=== PATIENT | male | born 1970 | race Caucasian/White ===

== ENCOUNTER 2017-04-15 02:34 | Inpatient (IN) ==
[2017-04-15] MEDS ORDERED: *HR* HYDROmorphone (PF) 1 MG/ML SYRINGE IVP ONE (05:24)
[2017-04-15] MEDS ORDERED: *HR* Labetalol 20 MG/4 ML SYRINGE IVP ONE (05:24)
--- NOTE | 2017-04-15 05:24 | Internal Med History&Physical ---
Date of Encounter: 04/15/17 Time of Encounter: 05:24 Assessment and Plan (1) Acute pancreatitis Current visit: Yes Status: Acute denies alcohol use. Patient is status post cholecystectomy. No change in his medications recently. At this time the cause is unknown. Treat him with the intravenous fluids and pain relief. GI consultation for further advice. Qualifiers: Pancreatitis type: unspecified pancreatitis type Acute pancreatitis complication: no infection or necrosis Qualified Code(s): K85.90 - Acute pancreatitis without necrosis or infection, unspecified (2) Accelerated hypertension Current visit: Yes Status: Acute Pt reports missing home meds last night. Labetolol PRN;; resume home meds (3) UTI (urinary tract infection) Current visit: Yes Status: Acute UA was noted to be abnormal in [facility]. Urine cultures were sent at [facility]. Empirically started ceftriaxone - titrate antibiotics based on culture results . Qualifiers: Urinary tract infection type: site unspecified Hematuria presence: without hematuria Qualified Code(s): N39.0 - Urinary tract infection, site not specified (4) Acute kidney injury Current visit: Yes Status: Acute Creatinine is 2.53. His baseline was about 1.5. Treat with IV fluids.Monitor renal function (5) Hyperkalemia Current visit: Yes Status: Acute Due to SIDNEY. Monitor (6) Nicotine dependence Current visit: Yes Status: Chronic Nicotine patch Qualifiers: Nicotine product type: cigarettes Substance use status: unspecified nicotine-induced disorder Qualified Code(s): F17.219 - Nicotine dependence, cigarettes, with unspecified nicotine-induced disorders (7) Morbid obesity with BMI of 40.0-44.9, adult Current visit: Yes Status: Chronic supportive care (8) Diabetes mellitus, type II Current visit: Yes Status: Chronic Start sliding scale insulin Qualifiers: Diabetes mellitus complication status: with neurologic complications Diabetes mellitus complication detail: with other neurological complication Qualified Code(s): E11.49 - Type 2 diabetes mellitus with other diabetic neurological complication; Z79.4 - shelter (current) use of insulin (9) DVT prophylaxis Current visit: Yes Status: Acute Heparin Internal Medicine - H&P: HPI Chief complaint: Abdominal pain Admitted From: Emergency Dept Plans for Post Hospital Care: Home History of present illness: Mr. Elizabeth is a 46 year old male With h/o diabetes mellitus, GERD, hypertension, s /p left BKA, s/p cholecystectomy - present to the emergency department at [facility], 9-day history of epigastric abdominal pain. He describes the pain as burning, severe 10/05, constant, radiating to the back, with no exacerbating factors. He denies significant nausea, vomiting, change in bowel habits, dysuria, hematuria, hematemesis, melena, hematochezia, fever, chills, chest pain, shortness of breath, cough or expectoration. He was evaluated in the ER at [facility] and was noted to have acute pancreatitis with the lipoprotein lipase of more than 2250. CT scan of the abdomen and pelvis apparently reported to stranding around the head of pancreas suggesting pancreatitis. He was hyperkalemic with potassium of 5.4 and was treated at [facility] ER. He is transferred to the hospitalist service attending [facility], as no inpatient beds available at [facility]. Summary of labs from [facility]: Urinalysis positive for leukocyte esterase, leukocytes and bacteria. Urine culture was sent. CBC shows a WBC of 11.9, hemoglobin 13.3, hematocrit 40.6, the test 363, serum sodium 139, potassium 4.4 , bicarbonate 25, BNP 27, glucose 208, creatinine 2.53, lactate 0.6, lipoprotein lipase more than 2250, bilirubin 0.2, creatinine 2.1, AST 22, ALT 16 , ALP: 271 Past Med Surg Social Fam HX - Past Medical History Medical history: arthritis, diabetes, GERD, hepatitis, hyperlipidemia, hypertension, venous stasis, other Psychiatric history: anxiety, depression - Past Surgical History Surgical History: cholecystectomy, other - Social History Smoking Status: Current every day smoker Smokeless Tobacco Status: No Alcohol use: none Drug use: none - Family History Mother Adopted: No Living Status: Still Living Hx Family Cardiac Disorders: Yes Hx Family Respiratory Disorders: Yes Hx Family Endocrine Disorder: Yes Father Adopted: No Family Member Ethnicity: Unknown Living Status: Internal Medicine - H&P: Meds Furosemide [Lasix] 20 mg PO DAILY 08/17/15 [History] Insulin ASPART [NovoLOG] 35 units SQ DAILY 08/17/15 [History] Insulin DETEMIR [Levemir] 30 unit SQ BID 08/17/15 [History] Metoprolol [Lopressor] 25 mg PO BID 08/17/15 [History] Omeprazole [PriLOSEC] 20 mg PO DAILY 08/17/15 [History] Potassium Chloride 20 meq PO BID 08/17/15 [History] Pregabalin [Lyrica] 200 mg PO TID 08/17/15 [History] hydrALAZINE [HydrALAZINE] 25 mg PO BID 08/17/15 [History] HYDROcodone/Acet 5/325 mg [[place] 5-325 mg] 1 tab PO Q8H PRN 02/06/16 [History] Allergies gabapentin [From Neurontin] Allergy (Verified 08/17/15 11:04) Rash All Systems PM: A 10-system review of systems was performed and is negative for pertinent findings except as documented above in the HPI. - Constitutional Vitals: Temp Pulse Resp BP Pulse Ox 97.8 F 86 19 211/104 98 04/15/17 04:10 04/15/17 04:46 04/15/17 04:10 04/15/17 04:10 04/15/17 04:10 Exam: General: In mild distress at the time of my evaluation. Obese HEENT: Oral mucosa is moist. No conjunctival palor or scleral icterus Neck: No obvious neck swellings Lungs: Clear to auscultation Cardiac: Regular rate and rhythm. No significant murmurs Abdomen: Epigastric tenderness present. Bowel sounds present Genitourinary: No jim catheter Neurological: Alert and oriented. No gross localizing deficits Psych: Not aggressive or agitated Extremities: Chronic edma / induration of the right leg noted. s/p amputation of the right forefoot. s/p left BKA Skin: No generalized rash Internal Med - H&P Results - Labs CBC & Chem 7: 04/15/17 05:43 Labs: Summary of labs from [facility]: Urinalysis positive for leukocyte esterase, leukocytes and bacteria. Urine culture was sent. CBC shows a WBC of 11.9, hemoglobin 13.3, hematocrit 40.6, the test 363, serum sodium 139, potassium 4.4 , bicarbonate 25, BNP 27, glucose 208, creatinine 2.53, lactate 0.6, lipoprotein lipase more than 2250, bilirubin 0.2, creatinine 2.1, AST 22, ALT 16 , ALP: 271 - EKG Data -: EKG Interpreted by Myself EKG shows normal: sinus rhythm - EKG Data EKG comments: T wave inversion in I, II, aVL; ST depression in III, aVF, V5-V6 04/15/17 08:16
[2017-04-15] MEDS ORDERED: Naloxone 0.4 MG/ML INJ IVP PRN (05:25)
[2017-04-15] MEDS ORDERED: *HR* Morphine 2 MG/ML SYRINGE IVP PRN (05:29)
[2017-04-15] MEDS ORDERED: Acetaminophen 325 MG TABLET PO PRN (05:29)
[2017-04-15] MEDS: Pantoprazole 40 MG VIAL IVP SCH (05:57)
[2017-04-15] MEDS: 0.9 % Sodium Chloride 1,000 ML IVC SCH ×2 (05:58→12:49)
[2017-04-15] MEDS: *HR* Heparin 5,000 UNIT/ML VIAL SQ SCH ×3 (05:58→21:25)
[2017-04-15] MEDS ORDERED: Dextrose Gel 15 GM PO PRN ×2 (05:59)
[2017-04-15] MEDS ORDERED: *HR* Dextrose 50 % in Water (Syg) 50 ML SYRINGE IVP PRN (05:59)
[2017-04-15] MEDS ORDERED: D5% in Water 1,000 ML IVC PRN (05:59)
[2017-04-15 06:28] LABS: Basophils # 0.1 K/mcL (0.0-0.2); Basophils % 1.2 %; Eosinophils # 0.5 K/mcL (0.0-0.6); Eosinophils % 4.9 %; Hematocrit 35.9 % (37.5-50.1); Hemoglobin 11.5 g/dL (12.9-16.9); Immature Granulocytes % 0.5 % (0-4); Lymphocytes # 1.9 K/mcL (0.6-4.6); Lymphocytes % 17.1 %; Mean Corpuscular Hemoglobin 27.6 pg (28.0-33.3); Mean Corpuscular Volume 86.3 fL (83.0-100.0); Mean Platelet Volume 9.9 fL (9.4-12.4); Monocytes # 0.8 K/mcL (0.0-1.3); Neutrophils # 7.6 K/mcL (1.6-8.9); Platelet Count 266 K/mcL (140-400); Red Blood Count 4.16 M/mcL (4.19-5.50); Red Cell Distribution Width 14.9 % (11.5-14.5); Segmented Neutrophils % 69.3 %
[2017-04-15 06:45] LABS: Chol/HDL Ratio 4.6 (0-4.9); Magnesium 1.8 mg/dL (1.6-2.6); Phosphorous 3.9 mg/dL (2.3-4.7)
[2017-04-15] MEDS: Nicotine 21 MG PATCH.TD24 TD SCH (10:09)
[2017-04-15] MEDS: *HR* HYDROmorphone (PF) 1 MG/ML SYRINGE IVP PRN ×4 (10:10→22:32)
[2017-04-15] MEDS: Insulin LISPRO 300 UNITS/3 ML VIAL SQ SCH ×3 (10:10→17:08)
[2017-04-15 10:50] LABS: Albumin 1.8 g/dL (3.5-5.0); Albumin/Globulin Ratio 0.4 (1.1-2.2); Bilirubin,Direct 0.1 mg/dL (0.0-0.5); Bilirubin,Indirect 0.1 mg/dL (0.0-1.2); Bilirubin,Total 0.2 mg/dL (0.2-1.2); Calcium 8.3 mg/dL (8.6-10.8); Globulin 4.5 g/dL (2.4-3.5); Total Protein 6.3 g/dL (6.0-8.3)
[2017-04-15 10:53] LABS: Ionized Calcium 1.16 mmol/L (1.15-1.35)
--- NOTE | 2017-04-15 11:55 | Gastroenterology Consult Note ---
<Aleksandar Lafleur - Last Filed: 04/15/17 11:53> Date of Encounter: 04/15/17 Time of Encounter: 10:50 - Assessment and plan (1) Acute pancreatitis Status: Acute Assessment and plan: Patient denies alcohol use. He is s/p cholecystectomy. Lipase more than 2250 at outside hospital, today lipase 618. Ionized calcium within normal limits triglyceride slightly elevated at 189. IgG4 pending. Continue IV fluids, pain control, and anti-emetics. Can start clear liquid diet when abdominal pain has improved. Qualifiers: Pancreatitis type: unspecified pancreatitis type Acute pancreatitis complication: no infection or necrosis Qualified Code(s): K85.90 - Acute pancreatitis without necrosis or infection, unspecified (2) Morbid obesity with BMI of 40.0-44.9, adult Status: Chronic (3) Diabetes mellitus, type II Status: Chronic Qualifiers: Diabetes mellitus complication status: with neurologic complications Diabetes mellitus complication detail: with other neurological complication Qualified Code(s): E11.49 - Type 2 diabetes mellitus with other diabetic neurological complication; Z79.4 - residential (current) use of insulin - Time Spent With Patient Total time spent is greater than 50% in coordination of care (as documented) at patient's floor/unit and/or counseling patient: GI History of Present Illness - Data of Consult Patient: new to practice Consult date: 04/15/17 Requesting Physician: Madonna Mejia - Consult Narrative Reason for consult: Pancreatitis History of present illness: Mr. Elizabeth is a 46 year old male with PMHx of arthritis, DM, GERD, HTN, s/p left BKA, s/p cholecystectomy who presented to ED at [facility] with 9 day history of epigastric pain. He describes the pain as burning, constant, radiating to the back, with no exacerbating factors. He denies fever, chills, chest pain, SOB, nausea, vomiting, hematemesis, melena, or hematochezia. He was evaluated in the ER at [facility] and was noted to have acute pancreatitis with lipase of more than 2250, TB 0.2, AST 22, ALT 16. Alk phos 271. CT scan of the abdomen and pelvis apparently reported to stranding around the head of pancreas suggesting pancreatitis. Procedures: None NSAIDs: None Anticoagulation: None Past Med Surg Social Fam HX - Past Medical History Medical history: arthritis, diabetes, GERD, hepatitis, hyperlipidemia, hypertension, venous stasis, other Psychiatric history: anxiety, depression - Past Surgical History Surgical History: cholecystectomy, other - Social History Smoking Status: Current every day smoker Smokeless Tobacco Status: No Alcohol use: none Drug use: none - Family History Mother Adopted: No Living Status: Still Living Hx Family Cardiac Disorders: Yes Hx Family Respiratory Disorders: Yes Hx Family Endocrine Disorder: Yes Father Adopted: No Family Member Ethnicity: Unknown Living Status: - Gastrointestinal Gastrointestinal: Present: as per HPI - EENT Eyes: as per HPI Ears: Present: as per HPI Nose, mouth and throat: Present: as per HPI - Cardiovascular Cardiovascular ROS: Present: as per HPI - Respiratory Respiratory IM: Present: as per HPI - Genitourinary Genitourinary: Absent: change in color, Urinary frequency - Neurological ROS Neurological GI: Present: as per HPI - Hematologic/Lymphatic Hematologic/Lymphatic pediatric: Present: as per HPI - Musculoskeletal Musculoskeletal ROS GI: Present: as per HPI - Integumentary Integumentary GI: Present: as per HPI - Psychiatric ROS Psychiatric GI: Present: as per HPI - Endocrine Endocrine IM: Present: as per HPI - Constitutional Vitals: Temp Pulse Resp BP Pulse Ox 97.8 F 67 18 170/83 91 04/15/17 07:51 04/15/17 08:00 04/15/17 07:51 04/15/17 07:51 04/15/17 07:51 General appearance: Present: cooperative, A&O X 3, no acute distress, answers questions appropriately - Head Head exam: Present: atraumatic, normocephalic - Eye Eye exam: Present: normal appearance, sclera anicteric - ENT ENT exam: Present: mucous membranes dry - Neck Neck exam general surgery: Present: normal inspection, trachea midline - Respiratory Respiratory exam: Present: decreased breath sounds, CTAB. Absent: rales, rhonchi, wheezes - Cardiovascular Cardiovascular exam: Present: RRR, +S1, +S2 - GI/Abdominal GI/Abdominal exam: Present: soft, tenderness (epigastric), no peritoneal signs. Absent: distended, firm, guarding - Rectal Rectal exam: Present: deferred - Extremities Exam Extremities exam: Present: warm - Neurological Exam Neurological exam: Present: no focal deficits - Psychiatric Psychiatric exam: Present: normal affect, normal mood - Skin Skin exam: Present: dry, intact, normal color, warm Results - Labs CBC & Chem 7: 04/15/17 05:43 04/15/17 05:43 Labs: Last Result Calcium 8.3 mg/dL (8.6-10.8) L 04/15/17 05:43 Troponin I 0.04 ng/mL (0-0.03) H* 04/15/17 05:43 Triglycerides 189 mg/dL (< 150) H 04/15/17 10:34 Entire Visit Hgb 11.5 g/dL (12.9-16.9) L 04/15/17 05:43 Hct 35.9 % (37.5-50.1) L 04/15/17 05:43 Total Bilirubin 0.2 mg/dL (0.2-1.2) 04/15/17 05:43 AST 16 Units/L (5-34) 04/15/17 05:43 ALT 8 Units/L (0-55) 04/15/17 05:43 Lipase 618 Units/L (8-78) H 04/15/17 05:43 Consult Discharge Plan - Plan Instructions: Ciprofloxacin (By mouth), Pancreatitis (DC), Acute Kidney Injury (DC), Diabetes Mellitus Type 2 in Adults (DC), Hyperkalemia (DC), Chronic Hypertension (DC) Additional Instructions: Follow-up with nephrology in 1-2 weeks for chronic kidney disease and hyperkalemia Referrals: Daniella Hinkle [Primary Care Provider] - 04/29/17 2:45 pm Prescriptions: Ciprofloxacin [Cipro] 500 mg PO BID #10 tablet <Ximena Dolan - Last Filed: 04/17/17 09:51> Date of Encounter: 04/15/17 Time of Encounter: 15:00 - Time Spent With Patient Total time spent is greater than 50% in coordination of care (as documented) at patient's floor/unit and/or counseling patient: GI History of Present Illness - Data of Consult Requesting Physician: Belen Kraus MD - Consult Narrative History of present illness: Mr. Elizabeth is a 46 year old male - Constitutional Vitals: Temp Pulse Resp BP Pulse Ox 96.7 F L 73 16 186/90 97 04/16/17 12:33 04/16/17 12:45 04/16/17 12:33 04/16/17 12:33 04/16/17 12:33 Results - Labs CBC & Chem 7: 04/16/17 06:27 04/16/17 12:39 Labs: Last Result Calcium 8.6 mg/dL (8.6-10.8) 04/16/17 06:27 Troponin I 0.04 ng/mL (0-0.03) H* 04/15/17 05:43 Triglycerides 189 mg/dL (< 150) H 04/15/17 10:34 Urine Opiates Screen Positive ng/mL (Osaufj=273) H 04/15/17 15:37 Entire Visit Hgb 12.1 g/dL (12.9-16.9) L 04/16/17 06:27 Hct 38.1 % (37.5-50.1) 04/16/17 06:27 Total Bilirubin 0.2 mg/dL (0.2-1.2) 04/15/17 05:43 AST 16 Units/L (5-34) 04/15/17 05:43 ALT 8 Units/L (0-55) 04/15/17 05:43 Lipase 618 Units/L (8-78) H 04/15/17 05:43 - Attending Attestation I examined this patient and my medical decision-making was reviewed with the TAXICAB COORDINATOR/PA/Advanced Practice Nurse/Resident Physician. I agree with the documented findings, disposition and treatment plan as described except to the extent set forth below.
[2017-04-15 15:14] LABS: Calcium 8.3 mg/dL (8.6-10.8); Potassium 5.2 mEq/L (3.5-4.5)
[2017-04-15] MEDS ORDERED: *HR* OxyCODONE Immed Rel 5 MG TABLET PO PRN (15:35)
[2017-04-15 15:58] LABS: Amphetamine Screen,Urine Negative ng/mL (Cutoff=1000); Barbiturate Screen,Urine Negative ng/mL (Cutoff=200); Benzodiazepines Screen,Urine Negative ng/mL (Cutoff=200); Cannabinoid Screen,Urine Negative ng/mL (Cutoff = 50); Cocaine Screen,Urine Negative ng/mL (Cutoff= 300); Opiate Screen,Urine Positive ng/mL (Cutoff=300); Phencyclidine Screen,Urine Negative ng/mL (Cutoff=25)
[2017-04-15] MEDS: hydrALAZINE 25 MG TABLET PO SCH (18:15)
--- NOTE | 2017-04-15 19:13 | Event Note ---
Date of Encounter: 04/15/17 Time of Encounter: 15:00 46-year-old male with history of diabetes, hypertension, left BKA, status post cholecystectomy who presented with a chief complaint of abdominal pain to [facility]. He was admitted with diagnosis of acute pancreatitis. CT scan of the abdomen and pelvis apparently reported to stranding around the head of pancreas suggesting pancreatitis. Upon my examination, patient feels better, his abdominal pain is mild and he wants to eat. We will start clear liquid diet. GI consulted. continue supportive therapy. decrease IV fluids. start IV hydralazine for HTN.
[2017-04-16] MEDS: Insulin LISPRO 300 UNITS/3 ML VIAL SQ SCH ×3 (02:16→12:14)
[2017-04-16] MEDS: *HR* HYDROmorphone (PF) 1 MG/ML SYRINGE IVP PRN ×4 (02:16→12:39)
[2017-04-16] MEDS: 0.9 % Sodium Chloride 1,000 ML IVC SCH ×2 (02:17→08:26)
[2017-04-16] MEDS: Pantoprazole 40 MG VIAL IVP SCH (06:18)
[2017-04-16] MEDS: hydrALAZINE 25 MG TABLET PO SCH (06:18)
[2017-04-16] MEDS: *HR* Heparin 5,000 UNIT/ML VIAL SQ SCH (06:18)
[2017-04-16 07:03] LABS: Calcium 8.6 mg/dL (8.6-10.8); Magnesium 1.8 mg/dL (1.6-2.6); Phosphorous 4.4 mg/dL (2.3-4.7)
[2017-04-16 07:08] LABS: Basophils # 0.1 K/mcL (0.0-0.2); Basophils % 1.3 %; Eosinophils # 0.5 K/mcL (0.0-0.6); Eosinophils % 5.2 %; Hematocrit 38.1 % (37.5-50.1); Hemoglobin 12.1 g/dL (12.9-16.9); Immature Granulocytes % 0.6 % (0-4); Lymphocytes # 1.9 K/mcL (0.6-4.6); Lymphocytes % 18.3 %; Mean Corpuscular HGB Conc 31.8 g/dL (31.6-35.5); Mean Corpuscular Hemoglobin 27.8 pg (28.0-33.3); Mean Corpuscular Volume 87.6 fL (83.0-100.0); Monocytes # 0.7 K/mcL (0.0-1.3); Monocytes % 7.1 %; Platelet Count 294 K/mcL (140-400); Red Blood Count 4.35 M/mcL (4.19-5.50); Segmented Neutrophils % 67.5 %
[2017-04-16 07:13] LABS: Potassium 5.8 mEq/L (3.5-4.5)
[2017-04-16] MEDS: Nicotine 21 MG PATCH.TD24 TD SCH (08:29)
[2017-04-16] MEDS ORDERED: Pantoprazole 40 MG VIAL IVP SCH (09:00)
--- NOTE | 2017-04-16 12:32 | Discharge Summary ---
Date of Encounter: 04/16/17 Time of Encounter: 11:00 - Discharge Diagnosis (1) Acute pancreatitis Priority: Primary Status: Acute Qualifiers: Pancreatitis type: idiopathic Acute pancreatitis complication: no infection or necrosis Qualified Code(s): K85.00 - Idiopathic acute pancreatitis without necrosis or infection (2) Accelerated hypertension Priority: Secondary Status: Acute (3) Acute kidney injury Priority: Secondary Status: Acute (4) Diabetes mellitus, type II Priority: Secondary Status: Chronic Qualifiers: Diabetes mellitus complication status: with neurologic complications Diabetes mellitus complication detail: with other neurological complication Diabetes mellitus superintendent terminal insulin use: with superintendent terminal use Qualified Code(s) : E11.49 - Type 2 diabetes mellitus with other diabetic neurological complication; Z79.4 - [facility] (current) use of insulin (5) Hyperkalemia Priority: Secondary Status: Acute (6) Morbid obesity with BMI of 40.0-44.9, adult Priority: Secondary Status: Chronic (7) Nicotine dependence Priority: Secondary Status: Chronic Qualifiers: Nicotine product type: cigarettes Substance use status: unspecified nicotine-induced disorder Qualified Code(s): F17.219 - Nicotine dependence, cigarettes, with unspecified nicotine-induced disorders (8) UTI (urinary tract infection) Priority: Secondary Status: Resolved Qualifiers: Urinary tract infection type: site unspecified Hematuria presence: without hematuria Qualified Code(s): N39.0 - Urinary tract infection, site not specified - Discharge Medications Prescriptions: Ciprofloxacin [Cipro] 500 mg PO BID #10 tablet Home Medications: Insulin ASPART [NovoLOG] 35 units SQ DAILY 08/17/15 [History] Insulin DETEMIR [Levemir] 30 unit SQ BID 08/17/15 [History] Metoprolol [Lopressor] 25 mg PO BID 08/17/15 [History] Omeprazole [PriLOSEC] 20 mg PO DAILY 08/17/15 [History] Pregabalin [Lyrica] 200 mg PO TID 08/17/15 [History] hydrALAZINE [HydrALAZINE] 25 mg PO BID 08/17/15 [History] HYDROcodone/Acet 5/325 mg [[place] 5-325 mg] 1 tab PO Q8H PRN 02/06/16 [History] Albuterol Sulfate [Ventolin Hfa] 2 puff IH Q4H PRN 04/15/17 [History] Budesonide [Pulmicort Flexhaler 180mcg] 1 puff IH BID 04/15/17 [History] Ciprofloxacin [Cipro] 500 mg PO BID #10 tablet 04/16/17 [Rx] Allergies/Adverse Reactions: Allergies gabapentin [From Neurontin] Allergy (Verified 08/17/15 11:04) Rash Date of admission: 04/15/17 05:25 Primary care physician: Daniella Hinkle Consults: 04/15/17 05:31 Consult to Gastroenterology [CONS] Routine Consulting Provider: Gastroenterology [facility] Reason for Consult: Acute pancreatitis Call Completed: No Discharging clinician: Belen Kraus Anticipated date of discharge: 04/16/17 - Patient Status Disposition: Home Health Service Condition: Good Functional capacity at discharge: independent ambulation Overall status at discharge: patient is progressing back to baseline - Discharge Instructions Instructions: Pancreatitis (DC), Diabetes Mellitus Type 2 in Adults (DC), Chronic Hypertension (DC) Follow Up With: Daniella Hinkle [Primary Care Provider] - 04/29/17 2:45 pm Additional Instructions: Follow-up with nephrology in 1-2 weeks for chronic kidney disease and hyperkalemia - Diet and Activity Activity: resume usual activities as tolerated Diet: diabetic diet, low fat, low cholesterol, low salt diet, other (Renal diet) Hospital course: Mr. Elizabeth is a 46 year old male patient with history of essential hypertension, diabetes mellitus type 2 who was admitted here with acute pancreatitis. He had been seen at [facility] and was found to have an elevated lipase at 2250. Patient has previously had a cholecystectomy. He was monitored here closely and treated with IV fluids and kept nothing by mouth initially. His pain and symptoms began to improve. His lipase here was 600 the next morning. He was started on a clear liquid diet which he is tolerating well. On presentation, he also had accelerated hypertension. This was treated with his usual home medications and IV hydralazine. However his lisinopril was held due to hyperkalemia. Patient also was evaluated by GI and recommended no further workup at this time. As the patient's condition has significantly improved, his stable to be discharged home. He is tolerating diet well. At this time, I am stopping his lisinopril and simvastatin. Lisinopril due to hyperkalemia and simvastatin as it can cause pancreatitis. Patient can follow up with his primary care provider for further management and reevaluation prior to restarting these medications. 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 His creatinine remains elevated. Patient's urine analysis done at [facility] also showed possible UTI. He was initially treated with a short course of Ciprofloxacin. - Time Spent with Patient Total time spent providing and/or coordinating discharge services: Greater than 30 minutes (35 min) - Constitutional Vitals: Temp Pulse Resp BP Pulse Ox 96.8 F L 71 16 163/107 96 04/16/17 07:50 04/16/17 08:25 04/16/17 07:50 04/16/17 07:50 04/16/17 07:50 General appearance: Present: cooperative, A&O X 3, no acute distress, answers questions appropriately - Neck Neck exam general surgery: Present: supple, trachea midline. Absent: lymphadenopathy - Respiratory Respiratory exam: Present: CTAB. Absent: accessory muscle use, rales, rhonchi, wheezes - Cardiovascular Cardiovascular exam: Present: RRR, +S1, +S2. Absent: diastolic murmur, gallop, rubs, systolic murmur - GI/Abdominal GI/Abdominal exam: Present: normal bowel sounds, soft, no peritoneal signs. Absent: distended, tenderness - Extremities Exam Extremities exam: Present: warm, radial pulses palpable and symetrical. Absent : calf tenderness, cyanotic, pedal edema - Attending Attestation This document has been at least partially created by [employer] recognition technology by Dr. Kraus. Errors in grammar, wording or other phrases may exist. If errors are found after the documentation is signed, they will be addressed individually in the addendum section of this document when appropriate.
[2017-04-16 12:34] VITALS: BP 186/90
[2017-04-17 07:07] LABS: ANA IgG by ELISA NONE DETECTED (None Detected); Immunoglobulin G Subclass 4 149 mg/dL (1-123)
== END 2017-04-16 15:25 | disposition home health service (06) | DRG 439 ==
LOC: 2NNU → SUATTDRO 05:25
PROVIDERS: ADMIT Internal Medicine; ATTEND Internal Medicine

== ENCOUNTER 2020-04-11 18:54 | Inpatient (IN) ==
[2020-04-11] MEDS ORDERED: Naloxone 0.4 MG/ML INJ IVP PRN (23:25)
[2020-04-11] MEDS ORDERED: D5% in Water 1,000 ML IVC PRN (23:27)
[2020-04-11] MEDS ORDERED: *HR* Dextrose 50 % in Water (Syg) 50 ML SYRINGE IVP PRN (23:27)
[2020-04-11] MEDS ORDERED: Dextrose Gel 15 GM/37.5 ML TUBE PO PRN ×2 (23:27)
[2020-04-12] MEDS: Nicotine 21 MG PATCH.TD24 TD SCH ×2 (00:09→09:00)
[2020-04-12] MEDS: Insulin LISPRO 300 UNITS/3 ML VIAL SQ SCH ×5 (00:25→20:04)
[2020-04-12 02:39] LABS: Basophils # 0.1 K/mcL (0.0-0.2); Basophils % 1.1 %; Eosinophils # 0.3 K/mcL (0.0-0.6); Eosinophils % 3.9 %; Hematocrit 26.3 % (37.5-50.1); Hemoglobin 8.5 g/dL (12.9-16.9); Immature Granulocytes % 0.8 % (0-4); Lymphocytes % 13.6 %; Mean Corpuscular HGB Conc 32.3 g/dL (31.6-35.5); Mean Corpuscular Hemoglobin 30.1 pg (28.0-33.3); Mean Corpuscular Volume 93.3 fL (83.0-100.0); Mean Platelet Volume 10.1 fL (9.4-12.4); Monocytes # 0.5 K/mcL (0.0-1.3); Monocytes % 6.7 %; Neutrophils # 5.4 K/mcL (1.6-8.9); Platelet Count 146 K/mcL (140-400); Red Blood Count 2.82 M/mcL (4.19-5.50); Red Cell Distribution Width 13.2 % (11.5-14.5); Segmented Neutrophils % 73.9 %; White Blood Count 7.4 K/mcL (4.3-11.1)
[2020-04-12 03:06] LABS: Albumin 2.2 g/dL (3.5-5.7); Albumin/Globulin Ratio 0.7 (1.1-2.2); Bilirubin,Total 0.3 mg/dL (0.3-1.0); Calcium 6.9 mg/dL (8.6-10.3); Globulin 3.2 g/dL (2.4-3.5); Magnesium 1.6 mg/dL (1.6-2.6); Phosphorous 6.1 mg/dL (2.7-4.5); Potassium 3.2 mEq/L (3.5-5.1); Total Protein 5.4 g/dL (6.4-8.9)
[2020-04-12 08:17] LABS: Hepatitis B Surface Antibody < 3.10 mIU/mL
[2020-04-12 08:29] LABS: Hepatitis B Surface Antigen Nonreactive (Nonreactive)
[2020-04-12] MEDS ORDERED: Perit. Dialysis with Dex 2.5 % 2,000 ML PERITONEAL ONE (11:30)
[2020-04-12] MEDS ORDERED: Furosemide 80 MG in 0.9 % Sodium Chloride 50 ML IVPB ONE ×2 (14:40→18:34)
[2020-04-12] MEDS ORDERED: Perflutren Lipid Microsphere 1.3 ML in 0.9 % Sodium Chloride 8.7 ML IVP ONE (15:31)
[2020-04-12] MEDS: Nitroglycerin 1 INCH/GM PACKET TP SCH (15:44)
[2020-04-12 17:54] LABS: Appearance of Peritoneal Fl CLOUDY (Clear)
[2020-04-12] MEDS ORDERED: *HR* HYDROcodone/Acet 7.5/325 mg TABLET PO ONE (21:25)
[2020-04-13] MEDS: Pregabalin 50 MG CAPSULE PO SCH ×2 (00:07→08:14)
[2020-04-13] MEDS ORDERED: *HR* OxyCODONE Immed Rel 5 MG TABLET PO ONE (03:23)
[2020-04-13 04:44] LABS: Hematocrit 28.6 % (37.5-50.1); Hemoglobin 9.2 g/dL (12.9-16.9); Mean Corpuscular HGB Conc 32.2 g/dL (31.6-35.5); Mean Corpuscular Hemoglobin 29.8 pg (28.0-33.3); Mean Corpuscular Volume 92.6 fL (83.0-100.0); Mean Platelet Volume 9.8 fL (9.4-12.4); Platelet Count 172 K/mcL (140-400); Red Blood Count 3.09 M/mcL (4.19-5.50); Red Cell Distribution Width 13.2 % (11.5-14.5); White Blood Count 7.2 K/mcL (4.3-11.1)
[2020-04-13 05:04] LABS: Calcium 7.3 mg/dL (8.6-10.3); Potassium 3.8 mEq/L (3.5-5.1)
[2020-04-13 05:32] LABS: Thyroid Stimulating Hormone 1.187 mcIU/mL (0.340-5.600); Troponin I 0.04 ng/mL (< 0.04)
[2020-04-13] MEDS: Nitroglycerin 1 INCH/GM PACKET TP SCH ×2 (06:05→13:10)
[2020-04-13] MEDS ORDERED: Dextrose 50 % in Water (Vial) 110 ML in Perit. Dialysis with Dex 1.5 % 2,000 ML PERITONEAL SCH (08:00)
[2020-04-13] MEDS: Insulin LISPRO 300 UNITS/3 ML VIAL SQ SCH ×4 (08:10→21:21)
[2020-04-13] MEDS: Nicotine 21 MG PATCH.TD24 TD SCH (08:14)
[2020-04-13] MEDS ORDERED: Ipratropium/Albuterol Neb 3 ML IH PRN (10:42)
[2020-04-13] MEDS ORDERED: Perit. Dialysis with Dex 4.25% 6,000 ML PERITONEAL ONE (11:45)
[2020-04-13] MEDS ORDERED: Perit. Dialysis with Dex 4.25% 6,000 ML PERITONEAL SCH (11:45)
[2020-04-13] MEDS ORDERED: Perit. Dialysis with Dex 2.5 % 6,000 ML PERITONEAL ONE ×2 (11:45)
[2020-04-13] MEDS: Valsartan 80 MG TABLET PO SCH (12:46)
[2020-04-13] MEDS: *HR* HYDROcodone/Acet 7.5/325 mg TABLET PO PRN ×2 (13:10→21:30)
[2020-04-13] MEDS: Pregabalin 75 MG CAPSULE PO SCH (21:30)
[2020-04-13] MEDS ORDERED: Ipratropium/Albuterol Neb 3 ML IH ONE (21:58)
[2020-04-13] MEDS ORDERED: *HR* HYDROmorphone 2 MG TABLET PO ONE (23:15)
[2020-04-14 00:43] LABS: VBG Ionized Calcium 0.98 mmol/L (1.15-1.35)
[2020-04-14 00:44] LABS: Hematocrit 27.2 % (37.5-50.1); Hemoglobin 8.7 g/dL (12.9-16.9); Mean Corpuscular Hemoglobin 29.9 pg (28.0-33.3); Mean Corpuscular Volume 93.5 fL (83.0-100.0); Platelet Count 161 K/mcL (140-400); Red Blood Count 2.91 M/mcL (4.19-5.50); White Blood Count 7.7 K/mcL (4.3-11.1)
[2020-04-14 01:03] LABS: Albumin 2.2 g/dL (3.5-5.7); Calcium 7.3 mg/dL (8.6-10.3); Phosphorous 5.2 mg/dL (2.7-4.5); Potassium 4.3 mEq/L (3.5-5.1)
[2020-04-14] MEDS: Nitroglycerin 1 INCH/GM PACKET TP SCH ×2 (06:10→11:38)
[2020-04-14] MEDS: Insulin LISPRO 300 UNITS/3 ML VIAL SQ SCH ×2 (08:18→11:38)
[2020-04-14] MEDS: Nicotine 21 MG PATCH.TD24 TD SCH (08:21)
[2020-04-14] MEDS: Pregabalin 75 MG CAPSULE PO SCH (08:22)
[2020-04-14] MEDS: Valsartan 80 MG TABLET PO SCH (08:22)
[2020-04-14] MEDS: *HR* HYDROcodone/Acet 7.5/325 mg TABLET PO PRN (08:26)
[2020-04-14 11:14] VITALS: BP 135/71
== END 2020-04-14 14:23 | disposition home health service (06) | DRG 919 ==
LOC: 2ANU → SUATTDRO 04-12 10:10
PROVIDERS: ADMIT Family Medicine; ATTEND Student in an Organized Health Care Education/Training Program

== ENCOUNTER 2020-06-25 17:10 | Inpatient (IN) ==
[2020-06-25 21:07] LABS: Basophils # 0.1 K/mcL (0.0-0.2); Basophils % 0.4 %; Hematocrit 35.3 % (37.5-50.1); Hemoglobin 11.3 g/dL (12.9-16.9); Immature Granulocytes % 5.1 % (0-4); Lymphocytes # 0.9 K/mcL (0.6-4.6); Lymphocytes % 3.6 %; Mean Corpuscular Hemoglobin 29.7 pg (28.0-33.3); Mean Corpuscular Volume 92.9 fL (83.0-100.0); Monocytes # 0.9 K/mcL (0.0-1.3); Monocytes % 3.4 %; Neutrophils # 21.9 K/mcL (1.6-8.9); Platelet Count 144 K/mcL (140-400); Red Cell Distribution Width 15.4 % (11.5-14.5); Segmented Neutrophils % 87.5 %
[2020-06-25 21:09] LABS: Adenovirus Not Detected (Not Detect); Bordetella Pertussis Not Detected (Not Detect); Chlamydophila pneumoniae Not Detected (Not Detect); Coronavirus 229E Not Detected (Not Detect); Coronavirus HKU1 Not Detected (Not Detect); Coronavirus NL63 Not Detected (Not Detect); Coronavirus OC43 Not Detected (Not Detect); Human Metapneumovirus Not Detected (Not Detect); Human Rhinovirus/Enterovirus Not Detected (Not Detect); Influenza A Subtype 2009 H1 Not Detected (Not Detect); Influenza B Not Detected (Not Detect); Mycoplasma pneumoniae Not Detected (Not Detect); Parainfluenza Virus 1 Not Detected (Not Detect); Parainfluenza Virus 2 Not Detected (Not Detect); Parainfluenza Virus 3 Not Detected (Not Detect); Parainfluenza Virus 4 Not Detected (Not Detect); Respiratory Syncytial Virus Not Detected (Not Detect)
[2020-06-25 21:14] LABS: INR 1.5; Prothrombin Time 16.8 Seconds (9.4-12.1)
[2020-06-25 21:17] LABS: VBG HCO3 28 mEq/L (21-27); VBG PCO2 54 mmHg (41-51); VBG PH 7.32 pH Units (7.32-7.42); VBG PO2 35 mmHg (25-50)
[2020-06-25 21:27] LABS: Albumin 2.8 g/dL (3.5-5.7); Albumin/Globulin Ratio 0.7 (1.1-2.2); Bilirubin,Total 0.5 mg/dL (0.3-1.0); Calcium 8.1 mg/dL (8.6-10.3); Globulin 3.9 g/dL (2.4-3.5); Potassium 5.3 mEq/L (3.5-5.1); Total Protein 6.7 g/dL (6.4-8.9)
[2020-06-25 21:29] LABS: Magnesium 1.8 mg/dL (1.6-2.6); Phosphorous 5.7 mg/dL (2.7-4.5)
[2020-06-25] MEDS ORDERED: Dextrose Gel 15 GM/37.5 ML TUBE PO PRN ×2 (21:31)
[2020-06-25] MEDS ORDERED: D5% in Water 1,000 ML IVC PRN (21:31)
[2020-06-25] MEDS ORDERED: Naloxone 0.4 MG/ML INJ IVP PRN (21:31)
[2020-06-25] MEDS ORDERED: *HR* Dextrose 50 % in Water (Vial) 50 ML VIAL IVP PRN (21:31)
[2020-06-25 21:34] LABS: Troponin I 0.05 ng/mL (< 0.04)
[2020-06-25 21:43] LABS: Platelet Estimate Normal (Normal); Toxic Granulation Present (Not Present)
[2020-06-25 23:14] LABS: Estimated Average Glucose 134 mg/dl
[2020-06-26] MEDS ORDERED: Albumin 25% 25gram/100mL 25 GM/100 ML IV.SOLN IVPB ONE (00:18)
[2020-06-26] MEDS ORDERED: Acetaminophen 325 MG TABLET PO PRN (00:36)
[2020-06-26] MEDS ORDERED: *HR* Promethazine 25 MG/ML VIAL IVP PRN (00:36)
[2020-06-26 00:41] LABS: Bilirubin,Urine Negative (Negative); Blood,Urine Small (Negative); Clarity,Urine Turbid (Clear); Color,Urine Yellow (Yellow); Glucose,Urine (UA) >=1000 mg/dL (Normal); Hyaline Casts,Urine Few per lpf (None Seen); Ketones,Urine Negative (Negative); Leukocyte Esterase,Urine Negative (Negative); Mucus,Urine Few per lpf (None-Few); Nitrite,Urine Negative (Negative); PH,Urine 5.5 pH Units (5.0-8.0); Protein,Urine 50 mg/dL (Neg-Trace); Specific Gravity,Urine > 1.030 (1.010-1.025); Squamous Epithelial Cell,Urine Few per hpf (None-Few); Urobilinogen,Urine Normal (Normal)
[2020-06-26] MEDS: Insulin LISPRO 300 UNITS/3 ML VIAL SQ SCH ×3 (01:08→12:27)
[2020-06-26] MEDS: *HR* Heparin 5,000 UNIT/ML VIAL SQ SCH ×3 (05:43→21:03)
[2020-06-26 06:25] LABS: Hematocrit 33.2 % (37.5-50.1); Hemoglobin 10.6 g/dL (12.9-16.9); Mean Corpuscular HGB Conc 31.9 g/dL (31.6-35.5); Mean Corpuscular Hemoglobin 29.7 pg (28.0-33.3); Mean Platelet Volume 10.6 fL (9.4-12.4); Platelet Count 140 K/mcL (140-400); Red Blood Count 3.57 M/mcL (4.19-5.50); Red Cell Distribution Width 15.5 % (11.5-14.5); White Blood Count 21.6 K/mcL (4.3-11.1)
[2020-06-26 06:29] LABS: INR 1.5; Prothrombin Time 17.5 Seconds (9.4-12.1)
[2020-06-26 06:47] LABS: Calcium 8.1 mg/dL (8.6-10.3); Magnesium 1.9 mg/dL (1.6-2.6); Phosphorous 5.7 mg/dL (2.7-4.5); Potassium 5.1 mEq/L (3.5-5.1); Troponin I 0.07 ng/mL (< 0.04)
[2020-06-26 07:04] LABS: Basophils # 0.4 K/mcL (0.0-0.2); Lymphocytes # 2.2 K/mcL (0.6-4.6); Monocytes # 0.4 K/mcL (0.0-1.3); Neutrophils # 18.6 K/mcL (1.6-8.9); Platelet Estimate Normal (Normal)
[2020-06-26] MEDS: cefTRIAXone 1,000 MG in Water for inj. (sterile) 10 ML IVP SCH (09:00)
[2020-06-26] MEDS: Albumin 25% 25gram/100mL 25 GM/100 ML IV.SOLN IVPB SCH ×2 (09:01→16:11)
[2020-06-26] MEDS: Azithromycin 500 MG in 0.9 % Sodium Chloride 250 ML IVPB SCH (09:01)
[2020-06-26] MEDS ORDERED: Perit. Dialysis with Dex 2.5 % 12,000 ML PERITONEAL ONE (19:00)
[2020-06-26] MEDS: Insulin DETEMIR 100 UNIT/ML X5UNITS SQ SCH (21:02)
[2020-06-26 21:42] LABS: Hepatitis B Surface Antibody < 3.10 mIU/mL
[2020-06-26 21:53] LABS: Hepatitis B Surface Antigen Nonreactive (Nonreactive)
[2020-06-27] MEDS: Albumin 25% 25gram/100mL 25 GM/100 ML IV.SOLN IVPB SCH (00:07)
[2020-06-27 03:52] LABS: ABG Base Excess 1 mEq/L (-2 to 3); ABG HCO3 24 mEq/L (21-27); ABG Oxygen Saturation 97 % (95-98); ABG PCO2 33 mmHg (35-45); ABG PH 7.47 pH Units (7.32-7.45); ABG PO2 79 mmHg (85-104); ABG TCO2 25 mEq/L (20-26)
[2020-06-27] MEDS: *HR* Heparin 5,000 UNIT/ML VIAL SQ SCH ×3 (04:31→20:39)
[2020-06-27 04:53] LABS: Hematocrit 30.9 % (37.5-50.1); Hemoglobin 9.9 g/dL (12.9-16.9); Mean Corpuscular Hemoglobin 29.5 pg (28.0-33.3); Platelet Count 109 K/mcL (140-400); Red Blood Count 3.36 M/mcL (4.19-5.50); Red Cell Distribution Width 15.4 % (11.5-14.5); White Blood Count 18.5 K/mcL (4.3-11.1)
[2020-06-27 05:08] LABS: Calcium 8.8 mg/dL (8.6-10.3); Potassium 4.3 mEq/L (3.5-5.1)
[2020-06-27 05:21] LABS: Lymphocytes # 0.7 K/mcL (0.6-4.6); Monocytes # 0.7 K/mcL (0.0-1.3); Platelet Estimate Decreased (Normal)
[2020-06-27 09:53] LABS: Appearance of Peritoneal Fl CLEAR (Clear)
[2020-06-27 10:12] LABS: RBC,Peritoneal Fluid < 2000 RBC/mcL
[2020-06-27] MEDS: cefTRIAXone 1,000 MG in Water for inj. (sterile) 10 ML IVP SCH (11:05)
[2020-06-27] MEDS: Azithromycin 500 MG in 0.9 % Sodium Chloride 250 ML IVPB SCH (11:06)
[2020-06-27] MEDS: Insulin LISPRO 300 UNITS/3 ML VIAL SQ SCH ×3 (11:07→17:05)
[2020-06-27 11:37] LABS: Basophils,Peritoneal Fluid 0 %; Eosinophils,Peritoneal Fluid 0 %
[2020-06-27] MEDS: Nicotine 21 MG PATCH.TD24 TD SCH (15:43)
[2020-06-27 15:49] LABS: Phosphorous 4.3 mg/dL (2.7-4.5)
[2020-06-27] MEDS ORDERED: Perit. Dialysis with Dex 2.5 % 12,000 ML PERITONEAL ONE (19:45)
[2020-06-27] MEDS: Famotidine 20 MG TABLET PO SCH (20:38)
[2020-06-27] MEDS: Insulin DETEMIR 100 UNIT/ML X5UNITS SQ SCH (20:39)
[2020-06-27] MEDS ORDERED: Insulin LISPRO 300 UNITS/3 ML VIAL SQ SCH (21:00)
[2020-06-28 02:22] LABS: Hemoglobin 10.6 g/dL (12.9-16.9)
[2020-06-28 02:24] LABS: Immature Platelets 5.5 % (1.1-6.1); Lymphocytes # 0.4 K/mcL (0.6-4.6); Mean Corpuscular HGB Conc 32.1 g/dL (31.6-35.5); Mean Corpuscular Hemoglobin 30.1 pg (28.0-33.3); Mean Corpuscular Volume 93.8 fL (83.0-100.0); Mean Platelet Volume 11.5 fL (9.4-12.4); Red Blood Count 3.52 M/mcL (4.19-5.50); Red Cell Distribution Width 15.9 % (11.5-14.5)
[2020-06-28 02:43] LABS: Calcium 8.7 mg/dL (8.6-10.3); Potassium 4.4 mEq/L (3.5-5.1)
[2020-06-28 02:59] LABS: Platelet Count 88 K/mcL (140-400)
[2020-06-28 03:00] LABS: Monocytes # 0.4 K/mcL (0.0-1.3); Neutrophils # 18.2 K/mcL (1.6-8.9)
[2020-06-28 03:01] LABS: Platelet Estimate Decreased (Normal); Toxic Granulation Present (Not Present)
[2020-06-28] MEDS: *HR* Heparin 5,000 UNIT/ML VIAL SQ SCH (04:58)
[2020-06-28] MEDS: Insulin LISPRO 300 UNITS/3 ML VIAL SQ SCH ×4 (08:14→21:37)
[2020-06-28] MEDS: cefTRIAXone 1,000 MG in Water for inj. (sterile) 10 ML IVP SCH (08:40)
[2020-06-28] MEDS: Famotidine 20 MG TABLET PO SCH ×2 (08:44→22:17)
[2020-06-28] MEDS: Azithromycin 500 MG in 0.9 % Sodium Chloride 250 ML IVPB SCH (08:48)
[2020-06-28] MEDS: Nicotine 21 MG PATCH.TD24 TD SCH (08:51)
[2020-06-28] MEDS ORDERED: Aspirin Enteric Coated 81 MG Tablet PO SCH (09:00)
[2020-06-28] MEDS ORDERED: cefTRIAXone 1,000 MG in 0.9 % Sodium Chloride Mini Bag 100 ML IVPB ONE (11:56)
[2020-06-28] MEDS ORDERED: cefTRIAXone 1,000 MG in Water for inj. (sterile) 10 ML IVP ONE (12:58)
[2020-06-28] MEDS ORDERED: Gentamicin Oint 15 GM TUBE TP SCH (13:00)
[2020-06-28] MEDS ORDERED: Vancomycin 1,750 MG in 0.9 % Sodium Chloride 250 ML IVPB SCH (15:00)
[2020-06-28] MEDS ORDERED: 0.9 % Sodium Chloride 500 ML IVC ONE (15:07)
[2020-06-28] MEDS ORDERED: Clindamycin 600 MG/50 ML 600 MG/50 ML IV.SOLN IVPB SCH (15:10)
[2020-06-28] MEDS ORDERED: Vancomycin 1,750 MG/517.5 ML IV.SOLN IVPB ONE (15:30)
[2020-06-28] MEDS ORDERED: Piperacillin/Tazobactam 3.375 GM in 0.9 % Sodium Chloride Mini Bag 100 ML IVPB SCH (15:30)
[2020-06-28] MEDS ORDERED: *HR* Midazolam HCl 2 MG/2 ML VIAL ONE (17:01)
[2020-06-28] MEDS ORDERED: *HR* FentaNYL (PF) 100 MCG/2 ML VIAL ONE (17:01)
[2020-06-28] MEDS ORDERED: *HR* Propofol 200 MG/20 ML VIAL IVP ONE ×2 (17:01)
[2020-06-28] MEDS ORDERED: Lidocaine -MPF 2% 2 ML VIAL ONE (17:02)
[2020-06-28] MEDS ORDERED: *HR* Succinylcholine 200 MG/10 ML VIAL IVP ONE (17:05)
[2020-06-28] MEDS ORDERED: Hydrocortisone Sodium Succ 100 MG/2 ML VIAL ONE (17:35)
[2020-06-28] MEDS ORDERED: Vancomycin 1,000 MG VIAL ONE (17:37)
[2020-06-28] MEDS ORDERED: *HR* Vasopressin 20 UNIT/ML VIAL ONE (18:37)
[2020-06-28] MEDS ORDERED: Famotidine 20 MG/2 ML VIAL ONE (18:37)
[2020-06-28] MEDS ORDERED: *HR* PHENYLEPHRINE 1,000 MCG/10 ML SYRINGE IVP ONE ×2 (18:56)
[2020-06-28] MEDS ORDERED: Perit. Dialysis with Dex 2.5 % 12,000 ML PERITONEAL ONE ×2 (19:00→20:46)
[2020-06-28] MEDS ORDERED: Ondansetron 4 MG/2 ML VIAL ONE (19:08)
[2020-06-28] MEDS ORDERED: *HR* HYDROMORPHONE 2 MG/ML VIAL ONE (20:06)
[2020-06-28] MEDS ORDERED: D5% in Water 1,000 ML IVC PRN (20:46)
[2020-06-28] MEDS ORDERED: *HR* Promethazine 25 MG/ML VIAL IVP PRN (20:46)
[2020-06-28] MEDS ORDERED: Acetaminophen 325 MG TABLET PO PRN (20:46)
[2020-06-28] MEDS ORDERED: Naloxone 0.4 MG/ML INJ IVP PRN ×2 (20:46→20:48)
[2020-06-28] MEDS ORDERED: Dextrose Gel 15 GM/37.5 ML TUBE PO PRN ×2 (20:46)
[2020-06-28] MEDS ORDERED: Artificial Tears SOLN 15 ML BOTTLE BOTH EYES PRN (20:48)
[2020-06-28] MEDS ORDERED: FentaNYL (PF) 1,000 MCG/100 ML IV.SOLN IVC SCH (21:00)
[2020-06-28] MEDS: Insulin DETEMIR 100 UNIT/ML X5UNITS SQ SCH (21:39)
[2020-06-28] MEDS: Gentamicin Oint 15 GM TUBE TP SCH (21:39)
[2020-06-28 21:47] LABS: ABG Base Excess -2 mEq/L (-2 to 3); ABG HCO3 25 mEq/L (21-27); ABG Oxygen Saturation 92 % (95-98); ABG PCO2 47 mmHg (35-45); ABG PH 7.33 pH Units (7.32-7.45); ABG PO2 70 mmHg (85-104); ABG TCO2 26 mEq/L (20-26); Blood Gas Modality AF; Blood Gas VT 500 cc
[2020-06-28] MEDS: Chlorhexidine Rinse 15 ML MOUTHWASH MM SCH (22:17)
[2020-06-28] MEDS: Artificial Tears SOLN 15 ML BOTTLE BOTH EYES SCH (23:07)
[2020-06-28] MEDS: Clindamycin 600 MG/50 ML 600 MG/50 ML IV.SOLN IVPB SCH (23:07)
[2020-06-29] MEDS: Artificial Tears SOLN 15 ML BOTTLE BOTH EYES SCH ×2 (03:07→08:26)
[2020-06-29 04:39] LABS: ABG Base Excess -1 mEq/L (-2 to 3); ABG HCO3 24 mEq/L (21-27); ABG Oxygen Saturation 97 % (95-98); ABG PCO2 40 mmHg (35-45); ABG PH 7.38 pH Units (7.32-7.45); ABG PO2 88 mmHg (85-104); ABG TCO2 25 mEq/L (20-26); Blood Gas Modality AF; Blood Gas VT 500 cc
[2020-06-29 04:42] LABS: Basophils # 0.1 K/mcL (0.0-0.2); Basophils % 0.5 %; Eosinophils % 0.1 %; Hematocrit 31.4 % (37.5-50.1); Hemoglobin 10.1 g/dL (12.9-16.9); Lymphocytes # 0.5 K/mcL (0.6-4.6); Mean Corpuscular HGB Conc 32.2 g/dL (31.6-35.5); Mean Corpuscular Hemoglobin 30.3 pg (28.0-33.3); Mean Corpuscular Volume 94.3 fL (83.0-100.0); Mean Platelet Volume 11.3 fL (9.4-12.4); Monocytes # 0.5 K/mcL (0.0-1.3); Monocytes % 2.9 %; Neutrophils # 15.8 K/mcL (1.6-8.9); Red Blood Count 3.33 M/mcL (4.19-5.50); Red Cell Distribution Width 15.9 % (11.5-14.5); Segmented Neutrophils % 88.5 %; White Blood Count 17.9 K/mcL (4.3-11.1)
[2020-06-29 04:43] LABS: Platelet Count 58 K/mcL (140-400)
[2020-06-29 04:56] LABS: Magnesium 1.6 mg/dL (1.6-2.6); Phosphorous 5.1 mg/dL (2.7-4.5)
[2020-06-29 04:57] LABS: Calcium 8.5 mg/dL (8.6-10.3); Potassium 4.4 mEq/L (3.5-5.1)
[2020-06-29] MEDS: Piperacillin/Tazobactam 3.375 GM in 0.9 % Sodium Chloride Mini Bag 100 ML IVPB SCH ×2 (05:15→18:07)
[2020-06-29] MEDS: Famotidine 20 MG TABLET PO SCH ×2 (08:15→20:43)
[2020-06-29] MEDS: Chlorhexidine Rinse 15 ML MOUTHWASH MM SCH (08:24)
[2020-06-29] MEDS: Insulin LISPRO 300 UNITS/3 ML VIAL SQ SCH ×4 (08:25→20:44)
[2020-06-29] MEDS: Clindamycin 600 MG/50 ML 600 MG/50 ML IV.SOLN IVPB SCH ×2 (08:25→16:43)
[2020-06-29] MEDS: Gentamicin Oint 15 GM TUBE TP SCH ×2 (08:27→19:47)
[2020-06-29] MEDS ORDERED: cefTRIAXone 2,000 MG in Water for inj. (sterile) 20 ML IVP SCH (09:00)
[2020-06-29] MEDS ORDERED: Nicotine 21 MG PATCH.TD24 TD SCH (09:00)
[2020-06-29] MEDS ORDERED: Pantoprazole 40 MG VIAL IVP SCH (09:00)
[2020-06-29] MEDS ORDERED: Aspirin Enteric Coated 81 MG Tablet PO SCH (09:00)
[2020-06-29] MEDS ORDERED: Albuterol 2.5 MG/3 ML NEBULIZER IH PRN ×2 (14:54→23:21)
[2020-06-29] MEDS: Budesonide Neb 0.5 MG/2 ML IH SCH ×2 (15:40→22:02)
[2020-06-29] MEDS: *HR* Dextrose 50 % in Water (Vial) 50 ML VIAL IVP PRN ×2 (16:44→20:45)
[2020-06-29] MEDS ORDERED: *HR* Heparin 5,000 UNIT/ML VIAL SQ SCH (18:00)
[2020-06-29] MEDS ORDERED: Perit. Dialysis with Dex 2.5 % 12,000 ML PERITONEAL ONE ×2 (19:00→23:21)
[2020-06-29] MEDS ORDERED: Perit. Dialysis with Dex 1.5 % 12,000 ML PERITONEAL ONE (19:00)
[2020-06-29] MEDS ORDERED: Dexmedetomidine HCl 400 MCG/100 ML MLS IVC SCH (20:00)
[2020-06-29] MEDS: Insulin DETEMIR 100 UNIT/ML X5UNITS SQ SCH (20:44)
[2020-06-29] MEDS ORDERED: Dextrose Gel 15 GM/37.5 ML TUBE PO PRN ×2 (23:21)
[2020-06-29] MEDS ORDERED: D5% in Water 1,000 ML IVC PRN (23:21)
[2020-06-29] MEDS ORDERED: *HR* Dextrose 50 % in Water (Vial) 50 ML VIAL IVP PRN (23:21)
[2020-06-29] MEDS ORDERED: Naloxone 0.4 MG/ML INJ IVP PRN (23:21)
[2020-06-29] MEDS ORDERED: Acetaminophen 325 MG TABLET PO PRN (23:21)
[2020-06-29] MEDS ORDERED: *HR* Promethazine 25 MG/ML VIAL IVP PRN (23:21)
[2020-06-30] MEDS: Dexmedetomidine HCl 400 MCG/100 ML MLS IVC SCH ×2 (00:15→14:27)
[2020-06-30] MEDS: Clindamycin 600 MG/50 ML 600 MG/50 ML IV.SOLN IVPB SCH ×3 (00:28→16:40)
[2020-06-30 04:33] LABS: Red Cell Distribution Width 15.4 % (11.5-14.5)
[2020-06-30 04:35] LABS: Hematocrit 29.5 % (37.5-50.1); Hemoglobin 9.8 g/dL (12.9-16.9); Immature Platelets 10.2 % (1.1-6.1); Mean Corpuscular HGB Conc 33.2 g/dL (31.6-35.5); Mean Corpuscular Hemoglobin 29.7 pg (28.0-33.3); Mean Corpuscular Volume 89.4 fL (83.0-100.0); White Blood Count 19.1 K/mcL (4.3-11.1)
[2020-06-30 04:46] LABS: Platelet Count 63 K/mcL (140-400)
[2020-06-30 04:55] LABS: Calcium 8.5 mg/dL (8.6-10.3); Potassium 4.2 mEq/L (3.5-5.1)
[2020-06-30] MEDS: Piperacillin/Tazobactam 3.375 GM in 0.9 % Sodium Chloride Mini Bag 100 ML IVPB SCH ×2 (05:22→17:49)
[2020-06-30] MEDS: *HR* Heparin 5,000 UNIT/ML VIAL SQ SCH ×2 (05:22→17:49)
[2020-06-30 05:40] LABS: Lymphocytes # 1.9 K/mcL (0.6-4.6); Monocytes # 1.2 K/mcL (0.0-1.3)
[2020-06-30 05:41] LABS: Platelet Estimate Decreased (Normal)
[2020-06-30] MEDS: Insulin LISPRO 300 UNITS/3 ML VIAL SQ SCH ×3 (08:35→16:41)
[2020-06-30] MEDS ORDERED: Nicotine 21 MG PATCH.TD24 TD SCH (09:00)
[2020-06-30] MEDS ORDERED: Aspirin Enteric Coated 81 MG Tablet PO SCH (09:00)
[2020-06-30] MEDS ORDERED: Vancomycin Oral Soln 125 MG/2.5 ML UDC PO SCH (09:00)
[2020-06-30] MEDS: Famotidine 20 MG TABLET PO SCH ×2 (09:00→22:00)
[2020-06-30] MEDS ORDERED: Vancomycin 500 MG, Sodium Chloride IRRigation 250 ML RC SCH (09:30)
[2020-06-30 10:21] LABS: ABG Base Excess 1 mEq/L (-2 to 3); ABG HCO3 24 mEq/L (21-27); ABG Oxygen Saturation 92 % (95-98); ABG PCO2 34 mmHg (35-45); ABG PH 7.46 pH Units (7.32-7.45); ABG PO2 60 mmHg (85-104); ABG TCO2 25 mEq/L (20-26)
[2020-06-30] MEDS: Gentamicin Oint 15 GM TUBE TP SCH ×2 (10:30→21:30)
[2020-06-30] MEDS ORDERED: Artificial Tears SOLN 15 ML BOTTLE BOTH EYES PRN (11:48)
[2020-06-30] MEDS: Budesonide Neb 0.5 MG/2 ML IH SCH ×2 (11:54→21:29)
[2020-06-30] MEDS ORDERED: Lidocaine/EPI 1:100k 1% 50 ML VIAL ONE (12:03)
[2020-06-30] MEDS ORDERED: Heparin 1,000 UNITS/500 mL 500 ML ONE (12:03)
[2020-06-30] MEDS ORDERED: 0.9 % Sodium Chloride 250 ML ONE (12:15)
[2020-06-30] MEDS ORDERED: *HR* Heparin 5,000 UNIT/ML VIAL ONE (12:37)
[2020-06-30] MEDS: Artificial Tears SOLN 15 ML BOTTLE BOTH EYES SCH ×3 (13:32→22:00)
[2020-06-30] MEDS: FentaNYL (PF) 1,000 MCG/100 ML IV.SOLN IVC SCH ×2 (13:39→18:43)
[2020-06-30] MEDS ORDERED: MetroNIDAZOLE 500 MG/100 ML 500 MG/100 ML BAG IVPB SCH (16:00)
[2020-06-30] MEDS ORDERED: *HR* Vasopressin 20 UNIT/ML VIAL ONE (18:18)
[2020-06-30] MEDS ORDERED: EPINEPHrine 1 MG/ML VIAL ONE ×2 (18:21→18:23)
[2020-06-30] MEDS ORDERED: EPHEDrine 50 MG/ML VIAL ONE (18:24)
[2020-06-30] MEDS ORDERED: *HR* FentaNYL (PF) 100 MCG/2 ML VIAL ONE (18:28)
[2020-06-30] MEDS ORDERED: *HR* PHENYLEPHRINE 1,000 MCG/10 ML SYRINGE IVP ONE (18:29)
[2020-06-30] MEDS ORDERED: *HR* Norepinephrine 4 MG/4 ML VIAL IVC ONE (18:33)
[2020-06-30] MEDS ORDERED: Gentamicin 80 MG/2 ML VIAL ONE ×2 (18:43→20:36)
[2020-06-30] MEDS ORDERED: Ringers Solution, Lactated 500 ML ONE (18:55)
[2020-06-30] MEDS ORDERED: Insulin DETEMIR 100 UNIT/ML X5UNITS SQ SCH ×2 (21:00)
[2020-06-30] MEDS ORDERED: Chlorhexidine Rinse 15 ML MOUTHWASH MM SCH (21:00)
[2020-06-30] MEDS ORDERED: Insulin LISPRO 300 UNITS/3 ML VIAL SQ SCH (21:00)
[2020-06-30] MEDS ORDERED: Norepinephrine 4 MG/254 ML IV.SOLN IVC SCH (21:45)
[2020-07-01] MEDS: Dexmedetomidine HCl 400 MCG/100 ML MLS IVC SCH ×5 (00:03→18:45)
[2020-07-01] MEDS: Artificial Tears SOLN 15 ML BOTTLE BOTH EYES SCH ×7 (00:04→23:15)
[2020-07-01] MEDS: Clindamycin 600 MG/50 ML 600 MG/50 ML IV.SOLN IVPB SCH (00:04)
[2020-07-01] MEDS: FentaNYL (PF) 1,000 MCG/100 ML IV.SOLN IVC SCH ×4 (02:17→23:29)
[2020-07-01] MEDS ORDERED: *HR* Promethazine 25 MG/ML VIAL IVP PRN (03:35)
[2020-07-01] MEDS ORDERED: Artificial Tears SOLN 15 ML BOTTLE BOTH EYES PRN (03:35)
[2020-07-01] MEDS ORDERED: Dextrose Gel 15 GM/37.5 ML TUBE PO PRN ×2 (03:35)
[2020-07-01] MEDS ORDERED: Naloxone 0.4 MG/ML INJ IVP PRN (03:35)
[2020-07-01] MEDS ORDERED: D5% in Water 1,000 ML IVC PRN (03:35)
[2020-07-01] MEDS ORDERED: *HR* Dextrose 50 % in Water (Vial) 50 ML VIAL IVP PRN (03:35)
[2020-07-01] MEDS ORDERED: Acetaminophen 325 MG TABLET PO PRN (03:35)
[2020-07-01] MEDS ORDERED: Albuterol 2.5 MG/3 ML NEBULIZER IH PRN (03:35)
[2020-07-01 03:52] LABS: Hemoglobin 8.4 g/dL (12.9-16.9)
[2020-07-01 03:54] LABS: Hematocrit 25.9 % (37.5-50.1); Immature Platelets 10.6 % (1.1-6.1); Mean Corpuscular HGB Conc 32.4 g/dL (31.6-35.5); Mean Corpuscular Hemoglobin 29.8 pg (28.0-33.3); Mean Corpuscular Volume 91.8 fL (83.0-100.0); Mean Platelet Volume 12.4 fL (9.4-12.4); Nucleated Red Blood Cells 0.1 /100 WBC (0); Platelet Count 87 K/mcL (140-400); Red Blood Count 2.82 M/mcL (4.19-5.50); White Blood Count 29.3 K/mcL (4.3-11.1)
[2020-07-01 04:16] LABS: Calcium 7.7 mg/dL (8.6-10.3); Potassium 5.4 mEq/L (3.5-5.1)
[2020-07-01] MEDS: Norepinephrine 4 MG/254 ML IV.SOLN IVC SCH (04:26)
[2020-07-01 04:29] LABS: ABG Base Excess -1 mEq/L (-2 to 3); ABG HCO3 27 mEq/L (21-27); ABG Oxygen Saturation 93 % (95-98); ABG PCO2 61 mmHg (35-45); ABG PH 7.25 pH Units (7.32-7.45); ABG PO2 81 mmHg (85-104); ABG TCO2 29 mEq/L (20-26); Blood Gas Modality AF; Blood Gas VT 500 cc
[2020-07-01 05:19] LABS: Lymphocytes # 3.5 K/mcL (0.6-4.6); Monocytes # 1.8 K/mcL (0.0-1.3)
[2020-07-01 05:20] LABS: Platelet Estimate Decreased (Normal)
[2020-07-01] MEDS: Piperacillin/Tazobactam 3.375 GM in 0.9 % Sodium Chloride Mini Bag 100 ML IVPB SCH ×2 (05:30→17:34)
[2020-07-01] MEDS: *HR* Heparin 5,000 UNIT/ML VIAL SQ SCH ×2 (05:32→17:33)
[2020-07-01] MEDS ORDERED: 0.9 % Sodium Chloride 250 ML IVC PRN (07:19)
[2020-07-01] MEDS ORDERED: 0.9 % Sodium Chloride 1,000 ML PRIME SCH (07:30)
[2020-07-01] MEDS ORDERED: Clindamycin 600 MG/50 ML 600 MG/50 ML IV.SOLN IVPB SCH (08:00)
[2020-07-01] MEDS ORDERED: Famotidine 20 MG TABLET PO SCH (09:00)
[2020-07-01] MEDS: Chlorhexidine Rinse 15 ML MOUTHWASH MM SCH ×2 (09:04→20:00)
[2020-07-01] MEDS: Insulin DETEMIR 100 UNIT/ML X5UNITS SQ SCH ×2 (09:04→23:42)
[2020-07-01] MEDS: Nicotine 21 MG PATCH.TD24 TD SCH (09:05)
[2020-07-01] MEDS: Aspirin Enteric Coated 81 MG Tablet PO SCH (09:07)
[2020-07-01] MEDS: Insulin LISPRO 300 UNITS/3 ML VIAL SQ SCH ×3 (09:07→17:09)
[2020-07-01] MEDS: Budesonide Neb 0.5 MG/2 ML IH SCH ×2 (09:40→21:25)
[2020-07-01] MEDS: Gentamicin Oint 15 GM TUBE TP SCH ×2 (11:30→20:00)
[2020-07-01] MEDS ORDERED: Vancomycin 2,000 MG/520 ML IV.SOLN IVPB ONE (13:39)
[2020-07-01] MEDS ORDERED: VANCOMYCIN IR ONE (14:00)
[2020-07-01] MEDS ORDERED: SODIUM CHLORIDE IR ONE (14:00)
[2020-07-01] MEDS: Pantoprazole 40 MG VIAL IVP SCH (16:33)
[2020-07-01] MEDS ORDERED: Insulin LISPRO 300 UNITS/3 ML VIAL SQ SCH (21:00)
[2020-07-01] MEDS ORDERED: Vancomycin 1,000 MG VIAL ONE (22:21)
[2020-07-01] MEDS ORDERED: *HR* PHENYLEPHRINE 1,000 MCG/10 ML SYRINGE IVP ONE (23:19)
[2020-07-02] MEDS ORDERED: Vancomycin 1,000 MG VIAL ONE (00:06)
[2020-07-02] MEDS: Dexmedetomidine HCl 400 MCG/100 ML MLS IVC SCH ×2 (01:30→07:44)
[2020-07-02] MEDS: Norepinephrine 4 MG/254 ML IV.SOLN IVC SCH (04:23)
[2020-07-02 04:27] LABS: ABG Base Excess -3 mEq/L (-2 to 3); ABG HCO3 22 mEq/L (21-27); ABG Oxygen Saturation 92 % (95-98); ABG PCO2 40 mmHg (35-45); ABG PH 7.36 pH Units (7.32-7.45); ABG PO2 66 mmHg (85-104); ABG TCO2 23 mEq/L (20-26); Blood Gas Modality AF; Blood Gas VT 500 cc
[2020-07-02 04:59] LABS: Hemoglobin 7.6 g/dL (12.9-16.9); Mean Corpuscular Volume 92.5 fL (83.0-100.0); Red Cell Distribution Width 15.9 % (11.5-14.5)
[2020-07-02 05:00] LABS: Basophils % 0.3 %
[2020-07-02 05:01] LABS: Basophils # 0.1 K/mcL (0.0-0.2); Hematocrit 23.4 % (37.5-50.1); Immature Granulocytes % 8.2 % (0-4); Immature Platelets 10.5 % (1.1-6.1); Lymphocytes # 1.7 K/mcL (0.6-4.6); Lymphocytes % 5.1 %; Mean Corpuscular HGB Conc 32.5 g/dL (31.6-35.5); Mean Platelet Volume 11.9 fL (9.4-12.4); Monocytes # 1.3 K/mcL (0.0-1.3); Monocytes % 3.7 %; Red Blood Count 2.53 M/mcL (4.19-5.50); Segmented Neutrophils % 82.7 %
[2020-07-02 05:14] LABS: Platelet Count 96 K/mcL (140-400); White Blood Count 33.8 K/mcL (4.3-11.1)
[2020-07-02 05:15] LABS: Calcium 7.5 mg/dL (8.6-10.3); Potassium 5.1 mEq/L (3.5-5.1)
[2020-07-02] MEDS: *HR* Heparin 5,000 UNIT/ML VIAL SQ SCH (05:29)
[2020-07-02] MEDS: Piperacillin/Tazobactam 3.375 GM in 0.9 % Sodium Chloride Mini Bag 100 ML IVPB SCH (05:30)
[2020-07-02 05:33] LABS: Platelet Estimate Decreased (Normal)
[2020-07-02] MEDS: Artificial Tears SOLN 15 ML BOTTLE BOTH EYES SCH ×4 (05:39→15:29)
[2020-07-02] MEDS: Aspirin Enteric Coated 81 MG Tablet PO SCH (07:48)
[2020-07-02] MEDS: FentaNYL (PF) 1,000 MCG/100 ML IV.SOLN IVC SCH ×2 (08:22→14:09)
[2020-07-02] MEDS: Insulin DETEMIR 100 UNIT/ML X5UNITS SQ SCH (08:23)
[2020-07-02] MEDS: Insulin LISPRO 300 UNITS/3 ML VIAL SQ SCH ×3 (08:23→15:29)
[2020-07-02] MEDS: Nicotine 21 MG PATCH.TD24 TD SCH (08:26)
[2020-07-02] MEDS: Chlorhexidine Rinse 15 ML MOUTHWASH MM SCH (08:26)
[2020-07-02] MEDS: Pantoprazole 40 MG VIAL IVP SCH (08:26)
[2020-07-02] MEDS: Budesonide Neb 0.5 MG/2 ML IH SCH (09:56)
[2020-07-02] MEDS: Gentamicin Oint 15 GM TUBE TP SCH (10:07)
[2020-07-02 16:07] VITALS: BP 92/58
== END 2020-07-02 16:47 | disposition short-term general hospital (02) | DRG 853 ==
LOC: CDU → 2ANU 21:26 → SUATTDRO 06-26 08:57 → ICNU 06-28 20:35
PROVIDERS: ADMIT Family Medicine; ATTEND Internal Medicine